=== PATIENT | male | born 1950 | race Caucasian/White ===

== ENCOUNTER → 2020-11-14 09:19 | Outpatient (CLI) | payer MEDICARE, BC, SELFPAY ==
[2020-11-14 10:25] LABS: Prothrombin Time 22.1 SECONDS (10.1-12.7)
[2020-11-14 10:26] LABS: Add Manual Diff / Slide Review NO; Basophils Absolute Auto 100 /uL (0-100); Basophils Percent Auto 2.9 % (0-2); Eosinophils Absolute Auto 200 /uL (0-450); Eosinophils Percent Auto 7.6 % (2-4); Hematocrit 25.6 % (41-53); Hemoglobin 7.7 g/dL (13.5-17.5); Lymphocytes Absolute Auto 600 /uL (1100-4500); Lymphocytes Percent Auto 28.9 % (25-40); Mean Corpuscular HGB Conc 30.1 % (30-36); Mean Corpuscular Hemoglobin 19.5 PG (26-34); Mean Corpuscular Volume 64.7 fL (80-100); Monocytes Absolute Auto 300 /uL (0-900); Monocytes Percent Auto 11.8 % (3-14); Neutrophils Absolute Auto 1100 /uL (1500-7000); Neutrophils Percent Auto 48.8 % (50-75); Platelet Count 74 X10^3/uL (150-400); Red Blood Cell Count 3.96 X10^6/uL (4.5-5.9); Red Cell Distribution Width 17.8 % (11.6-14.8); White Blood Cell Count 2.2 X10^3/uL (4.5-11.0)
[2020-11-14 10:55] LABS: Hypochromasia 2+; Microcytosis 3+; Poikilocytosis 1+
== END ==
PROVIDERS: PCP Student in an Organized Health Care Education/Training Program; Referring Provider Orthopaedic Surgery; Visit Provider Orthopaedic Surgery
DX: I48.0 Paroxysmal atrial fibrillation (principal); I10 Essential (primary) hypertension; M54.16 Radiculopathy, lumbar region; M43.17 Spondylolisthesis, lumbosacral region; M48.062 Spinal stenosis, lumbar region with neurogenic claudication; M47.26 Other spondylosis with radiculopathy, lumbar region; R29.898 Other symptoms and signs involving the musculoskeletal system
CPT/HCPCS: 36415; 85025; 85610

== ENCOUNTER 2020-11-16 07:45 | Outpatient (CLI) | payer MEDICARE, BC, SELFPAY ==
--- NOTE | 2020-11-16 | DI.CT.S_ITS ---
PROCEDURE: CT THORACIC SPINE W CON INDICATIONS: UPPER BACK PAIN-MYELOGRAM TECHNIQUE: After the administration of 10 mL intrathecal contrast, 3 mm thick sections acquired through the region of interest in the thoracic spine. Sagittal and coronal reformats were then constructed. For radiation dose reduction, the following was used: automated exposure control. COMPARISON: [facility], CT, CT LUMBAR SPINE W CON, 11/16/2020, 11:14. [facility], [place], [place] MYELOGRAM SPINE LUMBOSACRAL, 11/16/2020, 10:37. [facility], [place], MRI T-SPINE W/O CONTRAST, 05/14/2017, 11:15. FINDINGS: Image quality: Excellent. Bones: No displaced fractures are seen. No suspicious lytic or blastic lesions are seen. S-shaped scoliotic curvature is seen. No focal AP alignment abnormality is seen. Degenerative changes are seen throughout, with scattered levels of disc space narrowing and irregularity. Several levels of partially bridging endplate osteophytes can be seen. No significant central canal narrowing is seen. Scattered levels of mild to moderate neural foraminal narrowing can be seen. At least moderate lower cervical spine degenerative changes are also seen. Spinal cord: On these images, the spinal cord demonstrates normal bulk, without atrophic areas or expanded areas. Soft tissues: A small hiatal hernia is incidentally noted. No significant abnormality can be seen of the posteromedial lungs. No paraspinous masses are detected. IMPRESSION: Degenerative changes are seen, with S shaped scoliotic curvature. No significant central canal narrowing is detected. Dictated by: Ciro Zamudio M.D. on 11/16/2020 at 14:01 Approved by: Ciro Zamudio M.D. on 11/16/2020 at 14:04
--- NOTE | 2020-11-16 07:46 | DI.CT.S_ITS ---
PROCEDURE: CT LUMBAR SPINE W CON INDICATIONS: Other symptoms and signs involving the musculoskel TECHNIQUE: After the intrathecal administration of 15 mL intrathecal contrast, 3 mm thick sections acquired from T12 to the sacrum. Sagittal and coronal reformats were then constructed. For radiation dose reduction, the following was used: automated exposure control. COMPARISON: [facility], [place], MRI L-SPINE W/O CONTRAST, 03/24/2017, 7:09. [facility], , [place] MYELOGRAM SPINE LUMBOSACRAL, 11/16/2020, 10:37. FINDINGS: Image quality: Excellent. Bones: There is mild levoconvex curvature of the lumbar spine with apex at the L4-5 disc space level. There is mild grade 1 retrolisthesis of L2 on L3 and grade 1 retrolisthesis of L3 on L4. Bilateral L5 spondylolysis is seen with approximately 6 mm grade 1 anterolisthesis. No suspicious bony lesions. No acute fractures. Degenerative changes are seen at the included portions of the sacroiliac joints. Soft tissues: The conus medullaris terminates at the L1 vertebral body level. No retroperitoneal masses. Visualized aorta demonstrates normal caliber. Mild aortic atherosclerotic calcifications. T12-L1: Mild disc space narrowing with vacuum disc phenomenon and degenerative endplate changes are seen with a small posterior disc osteophyte complex, which does not result in significant spinal canal or neural foraminal narrowing. L1-L2: There is mild circumferential disc bulging and minimal bilateral facet hypertrophy, which does not result in significant spinal canal or neural foraminal narrowing. L2-L3: There is vacuum disc phenomenon and grade 1 retrolisthesis of L2 on L3 with mild to moderate bilateral facet hypertrophy. Findings do not result in significant spinal canal or neural foraminal narrowing. L3-L4: There is moderate disc space narrowing and degenerative endplate changes with circumferential disc bulging and posterior disc osteophyte complex as well as moderate bilateral facet hypertrophy and mild bulging of the ligamentum flavum. Findings result in mild narrowing of the spinal canal and moderate right and [id number] left neural foraminal narrowing. L4-L5: There is disc space narrowing with vacuum disc phenomenon, degenerative endplate changes, and grade 1 retrolisthesis of L4 on L5 as well as mild circumferential disc bulging and mild to moderate bilateral facet hypertrophy. Findings result in moderate to severe right and moderate left neural foraminal narrowing without significant spinal canal stenosis. L5-S1: There is bilateral spondylolysis of L5 with grade 1 anterolisthesis of L5 on S1 with uncovering of the disc space and circumferential disc bulging as well as vacuum disc phenomenon and degenerative endplate changes. There is severe bilateral neural foraminal narrowing without significant spinal canal stenosis. Miscellaneous: Nerve roots appear unremarkable throughout. No nerve root clumping to suggest arachnoiditis. IMPRESSION: 1. Mild levoconvex curvature of the lower lumbar spine and multilevel mild degenerative retrolisthesis. 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 2. Multilevel degenerative disc disease and facet hypertrophy as described in detail in the body of the report. 3. No high-grade spinal canal stenosis. 4. Severe neural foraminal narrowing is seen bilaterally L5-S1 level and there is moderate to severe right neural foraminal narrowing at the L4-5 level. Dictated by: Rene Marmolejo M.D. on 11/16/2020 at 12:36 Approved by: Rene Marmolejo M.D. on 11/16/2020 at 12:50
--- NOTE | 2020-11-16 07:46 | DI.RAD.S_ITS ---
PROCEDURE: [place] MYELOGRAM SPINE LUMBOSACRAL INDICATIONS: Other symptoms and signs involving the musculoskel COMPARISON: [facility], [place], MRI L-SPINE W/O CONTRAST, 03/24/2017, 7:09. TECHNIQUE: The indications, alternatives, benefits, risks and complications of the procedure were explained to the patient. Written informed consent was obtained and placed in the chart. The patient was placed in a prone position on the fluoroscopy table, and a level was chosen for percutaneous access under fluoroscopic guidance. The skin was prepped and draped in a sterile fashion. After local anaesthetic, a spinal needle was then used to enter the intrathecal space, with return of clear cerebrospinal fluid. 10 mL of Isovue M-300 administered intrathecally under fluoroscopic visualization. The needle was then withdrawn, and a bandage applied to the puncture site. Fluoroscopic spot films were then acquired in various positions. FINDINGS: Standing frontal, lateral, and oblique views demonstrate no significant central canal stenoses. Access level: L3 Medications: 1% lidocaine for local anaesthesia. Complications: None. Patient was transferred to CT for subsequent CT myelogram. IMPRESSION: Successful fluoroscopically guided administration of iodinated contrast into the lumbar spine central canal for CT myelogram. Dictated by: Nikita Shore M.D. on 11/16/2020 at 14:40 Approved by: Nikita Shore M.D. on 11/16/2020 at 14:40
[2020-11-16 09:07] VITALS: BP 110/63; PULSE 60; RESP 16; TEMP 36.4; O2SAT 100
[2020-11-16 09:52] LABS: INR 1.4 (0.9-1.3); Prothrombin Time 15.4 SECONDS (10.1-12.7)
[2020-11-16 09:53] LABS: Hematocrit 25.3 % (41-53); Hemoglobin 7.7 g/dL (13.5-17.5); Platelet Count 72 X10^3/uL (150-400)
[2020-11-16 11:58] VITALS: BP 114/65; PULSE 72; RESP 14; TEMP 36.1; O2SAT 98
--- NOTE | 2020-11-16 12:06 | SUR.PHASEII ---
Addendum entered by Dawna Diaz R.N. 11/16/20 12:09: States that he has his normal level of numbness and tingling and a new onset headache. encouraged fluids, informed him that the headache is why we ask him to lay flat. Original Note: returned from DI, stated that it was very uncomfortable and that he is glad that it is over. Fluids given, lunch ordered
[2020-11-16 13:00] VITALS: BP 109/57; PULSE 76; RESP 16; TEMP 36.2; O2SAT 95
--- NOTE | 2020-11-16 13:45 | SUR.PHASEII ---
Patient has been observed by Jose Eduardo Perez RN and Alexis Diaz RN. Ate lunch, states that headache has resolved. Voided without difficulty
[2020-11-16 14:03] VITALS: BP 113/66; PULSE 88; RESP 15; TEMP 36.3; O2SAT 98
--- NOTE | 2020-11-16 14:25 | SUR.PHASEII ---
Pt was escorted by [facility] to vehicle at the main entrance. Departed in stable condition.
== END 2020-11-16 14:26 | disposition home or self-care (01) ==
LOC: OR 07:46
PROVIDERS: Specialist; PCP Student in an Organized Health Care Education/Training Program; Referring Provider Nurse Practitioner; Visit Provider Nurse Practitioner
DX: R29.898 Other symptoms and signs involving the musculoskeletal system (principal); M54.6 Pain in thoracic spine
CPT/HCPCS: 72129; 72132; 72265; 82962; 85014; 85018; 85049; 85610